=== PATIENT | male | born 1990 | race Hispanic/Latino ===

== ENCOUNTER 2017-09-16 18:38 | Emergency (ER) | payer SELFPAY | END 2017-09-16 19:24 | disposition home or self-care (01) | LOC: EDH 18:38 | DX: S31.119D Laceration without foreign body of abdominal wall, unspecified quadrant without penetration into peritoneal cavity, subsequent encounter (principal); X58.XXXD Exposure to other specified factors, subsequent encounter | CPT/HCPCS: 99281 ==